=== PATIENT | female | born 1985 | race Caucasian/White ===

== ENCOUNTER → 2020-03-11 | Outpatient (CLI) | payer OTHER ==
--- NOTE | 2020-03-11 14:18 | US ---
EXAMINATION TYPE: US transvaginal DATE OF EXAM: 03/11/2020 COMPARISON: NONE CLINICAL HISTORY: N92.1 Excessive and frequent menstruation with. ovary and tube removed per patient history; ; right fallopian tube and ovary removed per patient. TECHNIQUE: Transvaginal (TV). Transvaginal sonographic images were medically necessary to better ass ess the following anatomy: endometrium and patient's bladder not filled Date of LMP: 02/20/2020 EXAM MEASUREMENTS: Uterus: 8.6 x 5.6 x 4.4 cm Endometrial Stripe: 0.8 cm Right Ovary: surgically removed Left Ovary: 8.6 x 5.6 x 4.4 cm 1. Uterus: Anteverted; couple of small Nabothian Cysts seen in cervix with largest = 0.4 x 0.3 x 0.3 cm 2. Endometrium: thickness is wnl for day 21 LMP 3. Right Ovary: surgically removed 4. Left Ovary: enlarged, but color flow is present, multiple follicles seen with largest simple foll icular cyst = 1.3 x 1.0 x 1.2cm and involuting follicle = 1.8 x 1.5 x 1.8cm. 5. Bilateral Adnexa: wnl 6. Posterior cul-de-sac: small amount of free fluid seen medial to left ovary/posterior cul de sac = 1.9 x 3.0 x 1.3cm. IMPRESSION: 1. Small cysts on the left ovary. 2. Small amount of free fluid within the cul-de-sac
== END | disposition home or self-care (01) ==
LOC: RADUSWWP 11:03
PROVIDERS: ATTEND Family Medicine
DX: N92.1 Excessive and frequent menstruation with irregular cycle (principal)
CPT/HCPCS: 76830

== ENCOUNTER → 2021-11-24 | Outpatient (CLI) | payer OTHER ==
--- NOTE | 2021-11-24 16:03 | US ---
EXAMINATION TYPE: US pelvis complete transvag DATE OF EXAM: 11/24/2021 COMPARISON: US CLINICAL HISTORY: N92.0 FREQUENT MENSTRUATION. Frequent menstruation. Patient states she had her righ t ovary and right fallopian tube removed. Hx tubal ligation, 1 miscarriage, D and C, . Patient h ad her IUD removed 11/10/2021. TECHNIQUE: Transvaginal (TV) and Transabdominal (TA) . Transabdominal sonographic images of the pel vis were acquired. Transvaginal sonographic images were medically necessary to better assess the fol lowing anatomy: Ovary and endometrium. Date of LMP: 11/15/2021 EXAM MEASUREMENTS: Uterus: 10.7 x 6.3 x 4.7 cm Endometrial Stripe: 0.51 cm Left Ovary: 3.9 x 3.0 x 1.7 cm 1. Uterus: Anteverted Measures upper limits versus slightly enlarged. Indistinct, hypoechoic area seen within myometrium: 1.4 x 1.4 x 1.2 cm. Subcentimeter anechoic areas seen in cervix. 2. Endometrium: Fluid seen within: 2.8 x 1.7 x 0.5 cm. Fluid seen within cervix: 1.7 x 0.2 x 0.2 cm. 3. Right Ovary: Patient states she had right ovary removed. See below. 4. Left Ovary: Largest anechoic area seen: 1.8 x 1.6 x 0.8 cm. 5. Bilateral Adnexa: * Solid, hypoechoic area seen in the right adnexa: 4.7 x 3.4 x 2.9 cm. Patient s tates she has had her right ovary and right fallopian tube removed. Complex area seen within area kayleigh cribed: 2.3 x 2.6 x 2.8 cm. Spectral, color and waveform doppler imaging shows arterial and venous flow within the area seen in the right adnexa. Flow used due to complex area seen. 6. Posterior cul-de-sac: Fluid seen IMPRESSION: 1. Uterine fibroids. 2. Fluid within the endometrial canal. 3. Solid-appearing lesion within the right adnexa which contains a complex cystic area discussed abov e. Patient is reported to be right oophorectomy. Additional workup of this finding is recommended. Co nsider CT examination.
== END | disposition home or self-care (01) ==
LOC: RADUSWWP 13:48
PROVIDERS: ATTEND Obstetrics & Gynecology
DX: N92.0 Excessive and frequent menstruation with regular cycle (principal); D25.9 Leiomyoma of uterus, unspecified
CPT/HCPCS: 76830; 76856

== ENCOUNTER → 2021-12-22 | Outpatient (CLI) | payer OTHER ==
--- NOTE | 2021-12-22 12:55 | CT ---
EXAMINATION TYPE: CT pelvis w con DATE OF EXAM: 12/22/2021 COMPARISON: Ultrasound 11/24/2021 HISTORY: 36-year-old female N94.89 Adnexal mass TECHNIQUE: Contiguous axial scanning of the pelvis following administration of 70 ml Isovue 300 IV co ntrast. Delayed images through the bladder and coronal/sagittal reconstructions performed. CT DLP: 441.9 mGycm Automated exposure control for dose reduction was used. FINDINGS: In the visualized lower abdomen and pelvis, no dilated small bowel or free fluid. No pelvic lymphadenopathy or abnormal fluid collection. Uterus anteverted measuring 10.1 x 5.9 x 4.7 cm. Both ovaries are visualized. Right ovary measures 3.9 x 3.0 x 2.4 cm for a volume of 14.0 mL. Within, there is a 2.4 cm cystic les ion with thin peripheral rim enhancement. This cystic lesion on the patient's 11/24/2021 ultrasound gui sured 2.8 cm which is relatively similar. Mild cul-de-sac free fluid probably physiologic. Bones: No osseous destructive process. IMPRESSION: 1. RIGHT OVARY WITH A VOLUME OF 14.0 ML. WITHIN THE RIGHT OVARY, THERE IS A 2.4 CM CYSTIC LESION WITH IN PERIPHERAL RIM ENHANCEMENT, RELATIVELY SIMILAR TO THE PATIENT'S 11/24/2021 ULTRASOUND. WE NOTE THE Leo LOPEZ'S PELVIC ULTRASOUND HISTORY STATING PRIOR RIGHT OOPHORECTOMY. RECOMMEND CLINICAL CORROBORATION . APPROPRIATE FOLLOW-UP RECOMMENDED, ESPECIALLY IF THERE IS CONCERN FOR RESIDUAL/RECURRENT CYSTIC EPI THELIAL NEOPLASM. 2. MILD CUL-DE-SAC FREE FLUID LIKELY PHYSIOLOGIC.
== END | disposition home or self-care (01) ==
LOC: RADCTMAIN 08:44
PROVIDERS: ATTEND Obstetrics & Gynecology
DX: N94.89 Other specified conditions associated with female genital organs and menstrual cycle (principal)
CPT/HCPCS: 72193; Q9967 ×2

== ENCOUNTER → 2022-01-19 | Outpatient (CLI) | payer OTHER | END | disposition home or self-care (01) | LOC: LABWHC1 16:14 | PROVIDERS: ATTEND Obstetrics & Gynecology | DX: R19.09 Other intra-abdominal and pelvic swelling, mass and lump (principal) | CPT/HCPCS: 36415; 86304 ==

== ENCOUNTER 2022-01-26 06:56 | Day surgery (SDC) | payer OTHER ==
[2022-01-25 13:05] VITALS: BMI 22.2
--- NOTE | 2022-01-25 19:05 | P.HPOB ---
History of Present Illness H&P Date: 01/25/22 Chief Complaint: Menorrhagia with irregular cycle This is 36 y.o. female, 4, para 3, who presents for dilatation and curettage with hysteroscopy and Novasure endometrial ablation. She recently had Mirena removed due to bleeding more often than not. Pelvic ultrasound showed uterus measuring 10.7 x 6.3 x 4.7 cm with small 1.4 cm fibroid, endometrium 0.51 cm with fluid within measuring 2.8 x 1.7 x 0.2 cm. Her right ovary had a cystic and solid appearance measuring up to 4.7 cm. Left ovary had 1.8 cm cyst. She had originally reported that her right ovary was removed, but upon reviewing her operative report, it appears she only had her right fallopian tube removed due to bleeding after a bilateral partial salpingectomy. OB Hx: . History of 3 vaginal deliveries. 1 miscarriage. Brake Tester Hx: No history of STDs. History of tubal ligation, 2013. Social Hx: Single. Lives with boyfriend. 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 Review of Systems Constitutional: Denies chills, Denies fever Eyes: denies blurred vision, denies pain Ears, nose, mouth and throat: Denies headache, Denies sore throat Cardiovascular: Denies chest pain, Denies shortness of breath Respiratory: Denies cough Gastrointestinal: Denies abdominal pain, Denies diarrhea, Denies nausea, Denies vomiting Genitourinary: Reports menorrhagia Menstruation: Reports menses 8 or > days, Reports menses variable Musculoskeletal: Denies myalgias Integumentary: Denies pruritus, Denies rash Neurological: Denies numbness, Denies weakness Psychiatric: Reports anxiety Endocrine: Denies fatigue, Denies weight change Hematologic/Lymphatic: Reports easy bruising 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 History of Any Multi-Drug Resistant Organisms: None Reported Past Surgical History: Breast Surgery, Tubal Ligation Additional Past Surgical History / Comment(s): Exploratory laproscopy, breast augmentation. Past Anesthesia/Blood Transfusion Reactions: Motion Sickness Additional Past Anesthesia/Blood Transfusion Reaction / Comment(s): Vertigo. Mom PONV. Past Psychological History: No Psychological Hx Reported Smoking Status: Never smoker Past Alcohol Use History: None Reported Past Drug Use History: None Reported - Past Family History Mother Family Medical History: Cancer (Breast) Medications and Allergies Home Medications Medication Instructions Recorded Confirmed Type No Known Home Medications 01/25/22 01/25/22 History Allergies Allergy/AdvReac Type Severity Reaction Status Date / Time ciprofloxacin [From Cipro] Allergy Swelling Verified 01/25/22 13:07 nitrofurantoin Allergy Rash/Hives Verified 01/25/22 13:07 [From Macrobid] Sulfa (Sulfonamide Allergy Swelling Verified 01/25/22 13:07 Antibiotics) Exam Osteopathic Statement: *. No significant issues noted on an osteopathic structural exam other than those noted in the History and Physical/Consult. Intake and Output 01/25/22 01/25/22 01/25/22 06:59 14:59 22:59 Other: Weight 49.895 kg HEENT: within normal limits Heart: regular rate and rhythm Lungs: clear to auscultation bilaterally Abdomen: soft, non-tender Pelvic: uterus mildly tender, anteverted, non-tender, no adnexal masses or tenderness Extremities: negative Angie's Assessment and Plan (1) Menorrhagia with irregular cycle Current Visit: No Status: Acute Code(s): N92.1 - EXCESSIVE AND FREQUENT MENSTRUATION WITH IRREGULAR CYCLE SNOMED Code(s): 033505094 Plan: Proceed with dilatation and curettage with hysteroscopy and Novasure endometrial ablation. I have discussed the risks, benefits, and alternative therapies for the above- mentioned procedure and for both sedation/anesthesia as well as necessary blood products administration, if indicated, as they pertain to this patient. The patient has indicated her understanding and acceptance of the risks and procedures discussed.
[~2022-01-26 06:56] MED LIST: DEXAMETHASONE SOD PHOSPHATE 4 MG/ML 1 ML VIAL IV ONE; LACTATED RINGERS 1,000 ML IV SCH; MIDAZOLAM 2 MG/2 ML VIAL IV PRN; ONDANSETRON 4 MG/2 ML VIAL IVP ONE; Pre Op ABX Message 1 EACH MISC MISCELLANE ONE; SCOPOLAMINE 1 MG/72 HR PATCH TRANSDERM ONE
[2022-01-26] MEDS ORDERED: HYDROmorphone 0.5 MG/0.5 ML SYRINGE IVP PRN (07:00)
[2022-01-26] MEDS ORDERED: PROPOFOL 10 MG/ML 20 ML VIAL IV ONE (07:26)
[2022-01-26] MEDS ORDERED: KETOROLAC 15 MG/ML 1 ML VIAL ONE (07:26)
[2022-01-26] MEDS ORDERED: fentaNYL (PF) 50 MCG/ML 2 ML AMP ONE (07:26)
[2022-01-26] MEDS ORDERED: LIDOCAINE 2% INJ 20 MG/ML (2 ML VIAL) ONE (07:26)
[2022-01-26] MEDS ORDERED: MIDAZOLAM 2 MG/2 ML VIAL ONE (07:26)
[2022-01-26 07:52] LABS: Basophils # (A) 0.1 k/uL (0-0.2); Basophils % (A) 1 %; Eosinophils # (A) 0.1 k/uL (0-0.7); Eosinophils % (A) 2 %; HCT 35.2 % (34.0-46.0); HGB 11.4 gm/dL (11.4-16.0); Lymphocytes # (A) 1.6 k/uL (1.0-4.8); Lymphocytes % (A) 28 %; MCH 26.1 pg (25.0-35.0); MCHC 32.5 g/dL (31.0-37.0); MCV 80.1 fL (80.0-100.0); Mean Platelet Volume 7.2; Monocytes # (A) 0.3 k/uL (0-1.0); Monocytes % (A) 5 %; Neutrophils # (A) 3.4 k/uL (1.3-7.7); Neutrophils % (A) 62 %; Platelet Count 238 k/uL (150-450); RBC 4.39 m/uL (3.80-5.40); RDW 13.7 % (11.5-15.5); WBC 5.5 k/uL (3.8-10.6)
--- NOTE | 2022-01-26 07:54 | P.OP ---
Date of Procedure: 01/26/22 Preoperative Diagnosis: Menorrhagia with irregular cycle Postoperative Diagnosis: Same Procedure(s) Performed: Dilation and curettage with hysteroscopy and NovaSure endometrial ablation Anesthesia: other (Mask general) Surgeon: Columba Glass Estimated Blood Loss (ml): 5 Pathology: other (Endometrial curettings) Condition: stable Disposition: same day Indications for Procedure: This is 36 y.o. female, 4, para 3, who presents for dilatation and curettage with hysteroscopy and Novasure endometrial ablation. She recently had Mirena removed due to bleeding more often than not. Pelvic ultrasound showed uterus measuring 10.7 x 6.3 x 4.7 cm with small 1.4 cm fibroid, endometrium 0.51 cm with fluid within measuring 2.8 x 1.7 x 0.2 cm. Her right ovary had a cystic and solid appearance measuring up to 4.7 cm. Left ovary had 1.8 cm cyst. She had originally reported that her right ovary was removed, but upon reviewing her operative report, it appears she only had her right fallopian tube removed due to bleeding after a bilateral partial salpingectomy. Operative Findings: Uterus is anteverted, no adnexal masses are palpated. Uterus is sounded to 8- 1/2 cm. Cervix is sounded to 3-1/2 cm. Upon hysteroscopy, a dyssynchronous endometrial pattern is noted. Both tubal ostia are visualized. A minimal to moderate amount of endometrial curettings are obtained. Description of Procedure: The patient is taken to the operating room. She is placed in the dorsal lithotomy position after general anesthesia was given. She is prepped and draped in the normal sterile fashion. Bladder is drained with a catheter and then removed. Pelvic exam is performed under anesthesia. Uterus is found to be anteverted with no adnexal masses. She is placed in slight Trendelenburg position. A right angle retractor is used to visualize the cervix. The anterior lip of the cervix is grasped with a single-tooth tenaculum. Cervix is sounded to 3.5 cm. Uterus is sounded to 8.5 cm. Cervix is gently dilated with Nunes dilators until a hysteroscope could be passed. Hysteroscopy is performed using normal saline. The above noted findings are noted. Next a polyp forceps is introduced. A minimal amount of tissue was obtained. Next medium-sized size sharp curette was placed. A minimal to moderate amount of endometrial curettings were obtained. Next NovaSure array was inserted into the endometrial cavity. Length was set at 5 cm and width was determined to be 4 cm. Next cavity assessment was completed and passed on the first try. Next NovaSure array was fired at 110 W for 69 seconds. Next the array was removed, inspected and then discarded. Next the hysteroscope was reinserted. Uniform charring was noted. Pictures were taken. Hysteroscope was removed. Single-tooth tenaculum was removed from the anterior lip of the cervix. Minimal bleeding was noted. All other instruments removed from the vagina. Sponge counts were correct. Patient is taken to recovery room in stable condition.
[2022-01-26 08:03] VITALS: TEMP 97.1
[2022-01-26] MEDS ORDERED: KETOROLAC 15 MG/ML 1 ML VIAL IVP ONE (08:23)
[2022-01-26] MEDS ORDERED: ACETAMINOPHEN TAB 500 MG TAB ONE (09:07)
[2022-01-26] MEDS ORDERED: ACETAMINOPHEN TAB 500 MG TAB PO ONE (09:07)
[2022-01-26 09:13] VITALS: BP 123/79; PULSE 52; RESP 15
[2022-01-26] MEDS ORDERED: ONDANSETRON 4 MG/2 ML VIAL IVP ONE ×2 (09:40)
[2022-01-26] MEDS ORDERED: ONDANSETRON 4 MG/2 ML VIAL ONE (09:40)
== END 2022-01-26 10:32 | disposition home or self-care (01) ==
LOC: OR 06:56
PROVIDERS: ATTEND Obstetrics & Gynecology
DX: N92.1 Excessive and frequent menstruation with irregular cycle (principal); N85.8 Other specified noninflammatory disorders of uterus; Z86.2 Personal history of diseases of the blood and blood-forming organs and certain disorders involving the immune mechanism; R42 Dizziness and giddiness; Z88.1 Allergy status to other antibiotic agents; Z88.2 Allergy status to sulfonamides; Z79.1 Long term (current) use of non-steroidal anti-inflammatories (NSAID); Z79.899 Other long term (current) drug therapy
CPT/HCPCS: 58563; 81025; 88305; 85025; J2250; J1100; J2405; J3010; J1885; J2704; J1170; J2001

== ENCOUNTER → 2022-02-16 | Outpatient (CLI) | payer OTHER | END | disposition home or self-care (01) | LOC: LABWHC1 09:35 | PROVIDERS: ATTEND Obstetrics & Gynecology | DX: N83.209 Unspecified ovarian cyst, unspecified side (principal) | CPT/HCPCS: 36415; 86304 ==

== ENCOUNTER → 2022-02-16 | Outpatient (CLI) | payer OTHER ==
--- NOTE | 2022-02-16 11:39 | US ---
EXAMINATION TYPE: US pelvis complete transvag DATE OF EXAM: 02/16/2022 COMPARISON: US dated 12/22/20[address] dated12/22/2021 CLINICAL HISTORY: N83.0 OVARIAN CYST. Ablation 01/28/2022. TECHNIQUE: . Transabdominal sonographic images of the pelvis were acquired. Transvaginal sonographi c images were medically necessary to better assess the following anatomy: right ovary. Date of LMP: 01/22/2022 EXAM MEASUREMENTS: Uterus: 9.3 x 4.5 x 6.8 cm Endometrial Stripe: 0.6 cm with fluid within. Right adnexal mass: 3.0 x 1.8 x 2.8 cm Left Ovary: 2.8 x 2.2 x 2.4 cm 1. Uterus: Anteverted heterogeneous echotexture. 2. Endometrium: Trace fluid in the endometrial canal. Endometrium measures 7 mm in thickness. 3. Right adnexa: Patient reports right ovarian right fallopian tube removal. There is an ovoid mass within the right adnexa where this is in similar location to prior complex area with no cystic compon ents are identified. Color Doppler flow is identified. Follicles demonstrated. 4. Left Ovary: wnl, color Doppler flow is identified. Follicles demonstrated. 5. Bilateral Adnexa: Described above. 6. Posterior cul-de-sac: no free fluid IMPRESSION: 1. Heterogenous uterus suspicious for uterine fibroids. 2. Fluid within the endometrial canal redemonstrated. 3. Solid-appearing lesion is redemonstrated within the right adnexa with cystic regions no longer vis ualized. Patient does report history of right oophorectomy. This again has appearance of an ovary. Co rrelation with patient history is recommended. Further workup is recommended.
== END | disposition home or self-care (01) ==
LOC: RADUSWWP 09:03
PROVIDERS: ATTEND Obstetrics & Gynecology
DX: N83.201 Unspecified ovarian cyst, right side (principal)
CPT/HCPCS: 76830; 76856

== ENCOUNTER → 2022-10-26 | Outpatient (CLI) | payer OTHER ==
--- NOTE | 2022-10-26 10:26 | MM ---
Reason for Exam: Clinical finding. Baseline mammogram. Indicated Problems: Other indicated problem of the left side for 2 Week(s). Patient History: Menarche at age 13. First Full-Term at age 18. 2012, Bilateral Implants. Mother had breast cancer under age 50. Risk Values: Charlee 5 year model risk: 0.5%. NCI Lifetime model risk: 18.3%. Prior Study Comparison: Patient's first Mammogram. Tissue Density: The breast tissue is heterogeneously dense. This may lower the sensitivity of mammography. Findings: Bilateral breast implants. Benign appearing axillary lymph nodes. Occasional benign-appearing round calcification bilaterally. No suspicious group of microcalcifications or concerning mass. Overall Assessment: Benign, BI-RAD 2 Management: Screening Mammogram of both breasts at age 41. Manage clinically patient's symptoms of bilateral pain.. Results were given to the patient verbally at the time of exam. Patient should continue monthly self-breast exams. A clinical breast exam by your physician is recommended on an annual basis. This exam should not preclude additional follow-up of suspicious palpable abnormalities. Note on Charlee scores and lifetime risk: 1. A Charlee score greater than 3% is considered moderate risk. If this is the case, consider specialist referral to assess eligibility for a risk reducing agent. 2. If overall lifetime risk for the development of breast cancer is 20% or higher, the patient may qualify for future screening with alternating mammogram and breast MRI. Electronically signed and approved by: Puneet Hilario M.D.
== END | disposition home or self-care (01) ==
LOC: RADMAMWWP 09:49
PROVIDERS: ATTEND Obstetrics & Gynecology
DX: N64.4 Mastodynia (principal); R59.0 Localized enlarged lymph nodes; R92.2 Inconclusive mammogram; Z80.3 Family history of malignant neoplasm of breast
CPT/HCPCS: 77062; 77066

== ENCOUNTER 2023-01-13 21:41 | Emergency (ER) | payer OTHER ==
[2023-01-13 21:46] VITALS: BP 132/85; PULSE 66; RESP 18; TEMP 98.9
[2023-01-13] MEDS ORDERED: DEXAMETHASONE SOD PHOSPHATE 10 MG/ML 1 ML VIAL IM STA (22:17)
--- NOTE | 2023-01-13 23:01 | ED ---
General Adult HPI - General Chief complaint: ENT Stated complaint: Right eye Swelling Time Seen by Provider: 01/13/23 21:50 Source: patient Mode of arrival: ambulatory Limitations: no limitations - History of Present Illness Initial comments: This is a 37-year-old female who presents emergency department for swelling in her right eye. The patient noted that she had itchiness to the right eye earlier today and noted that she felt swelling approximately 20 minutes prior to arrival. The patient noted that she had swelling around the eye and the white of the eye so she took 2 doses of Benadryl at home. The patient stated OCCURRED 20 minutes prior to arrival. The patient came to the emergency department for evaluation to make sure "I didn't lose my eye." The patient denied any ALLERGIC reactions in the past and denied any other acute symptoms at this time. The patient denied any blurry vision. - Related Data Previous Rx's Medication Instructions Recorded predniSONE [Deltasone] 40 mg PO DAILY 5 Days #10 tab 01/13/23 Allergies Allergy/AdvReac Type Severity Reaction Status Date / Time ciprofloxacin [From Cipro] Allergy Swelling Verified 01/13/23 21:46 nitrofurantoin Allergy Rash/Hives Verified 01/13/23 21:46 [From Macrobid] Sulfa (Sulfonamide Allergy Swelling Verified 01/13/23 21:46 Antibiotics) Review of Systems ROS Statement: Those systems with pertinent positive or pertinent negative responses have been documented in the HPI. ROS Other: All systems not noted in ROS Statement are negative. 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 History of Any Multi-Drug Resistant Organisms: None Reported Past Surgical History: Breast Surgery, Tubal Ligation Additional Past Surgical History / Comment(s): Exploratory laproscopy, breast augmentation. Past Anesthesia/Blood Transfusion Reactions: Motion Sickness Additional Past Anesthesia/Blood Transfusion Reaction / Comment(s): Vertigo. Mom PONV. Past Psychological History: No Psychological Hx Reported Smoking Status: Never smoker Past Alcohol Use History: None Reported Past Drug Use History: None Reported - Past Family History Mother Family Medical History: Cancer (Breast) General Exam Limitations: no limitations General appearance: alert, in no apparent distress Head exam: Present: atraumatic, normocephalic, normal inspection Eye exam: Present: normal appearance, PERRL, other (R scleral chemosis noted) Pupils: Present: normal accommodation ENT exam: Present: normal exam, normal oropharynx, mucous membranes moist Neck exam: Present: normal inspection, full ROM Respiratory exam: Present: normal lung sounds bilaterally Cardiovascular Exam: Present: regular rate, normal rhythm, normal heart sounds GI/Abdominal exam: Present: soft, normal bowel sounds Extremities exam: Present: normal inspection, full ROM Back exam: Present: normal inspection, full ROM Neurological exam: Present: alert, oriented X3, CN II-XII intact Psychiatric exam: Present: normal affect, normal mood Skin exam: Present: warm, dry Course Vital Signs 01/13/23 21:43 Temperature 98.9 F Pulse Rate 66 Respiratory 18 Rate Blood Pressure 132/85 O2 Sat by Pulse 97 Oximetry Medical Decision Making - Medical Decision Making Was pt. sent in by a medical professional or institution (, PA, PLUNGER SCOOP OPERATOR, urgent care, hospital, or custodial...) When possible be specific @ -No Did you speak to anyone other than the patient for history (EMS, parent, family, police, friend...)? What history was obtained from this source @ -No Did you review nursing and triage notes (agree or disagree)? Why? @ -I reviewed and agree with nursing and triage notes Were old charts reviewed (outside hosp., previous admission, EMS record, old EKG, old radiological studies, urgent care reports/EKG's, custodial records)? Report findings @ -No old charts were reviewed Differential Diagnosis (chest pain, altered mental status, abdominal pain women, abdominal pain men, vaginal bleeding, weakness, fever, dyspnea, syncope, headache, dizziness, GI bleed, back pain, seizure, CVA, palpatations, mental health)? @ -ALLERGIC conjunctivitis, chemosis, hemorrhagic chemosis EKG interpreted by me (3pts min.). @ -None X-rays interpreted by me (1pt min.). @ -None done CT interpreted by me (1pt min.). @ -None done U/S interpreted by me (1pt. min.). @ -None done What testing was considered but not performed or refused? (CT, X-rays, U/S, labs)? Why? @ -None What meds were considered but not given or refused? Why? @ -None Did you discuss the management of the patient with other professionals (professionals i.e. , PA, PLUNGER SCOOP OPERATOR, lab, RT, psych nurse, web content & social media manager, foam rubber curer, teacher, public health service officer, family preservation caseworker)? Give summary @ -No Was smoking cessation discussed for >3mins.? @ -No Was critical care preformed (if so, how long)? @ -No Were there social determinants of health that impacted care today? How? (Homelessness, low income, unemployed, alcoholism, drug addiction, transportation, low edu. Level, literacy, decrease access to med. care, long-term, rehab)? @ -No Was there de-escalation of care discussed even if they declined (Discuss DNR or withdrawal of care, Hospice)? DNR status @ -No What co-morbidities impacted this encounter? (DM, HTN, Smoking, COPD, CAD, Cancer, CVA, ARF, Chemo, Hep., AIDS, mental health diagnosis, sleep apnea, morbid obesity)? @ -None Was patient admitted / discharged? Hospital course, mention meds given and route, prescriptions, significant lab abnormalities, going to OR and other pertinent info. @ -The patient was seen and evaluated emergency department. Physical exam, the patient was resting in bed without any acute distress. Vital signs admission were stable. Due to the nature the patient's physical exam findings related to ecchymosis, the patient did receive IM Decadron as the patient had arty taken Benadryl at home prior to arrival. The patient initially had complaints of the right eyes swelling and noted some minor swelling to the left eye. On reevaluation, the patient stated that her symptoms were improving but stated that she had pain in the right eye therefore forcing staining was obtained and was negative for a corneal abrasion. The patient remained stable and was given a prescription for prednisone to be taken at home and told to continue to take Benadryl. The patient likely had ALLERGIC chemosis and was told to continue to monitor symptoms and report back to the emergency department if they became acutely worse. The patient was agreeable to this and was discharged home in stable condition. Undiagnosed new problem with uncertain prognosis? @ -No Drug Therapy requiring intensive monitoring for toxicity (Heparin, Nitro, Insulin, Cardizem)? @ -No Were any procedures done? @ -No Diagnosis/symptom? @ -ALLERGIC conjunctival chemosis. Acute, or Chronic, or Acute on Chronic? @ -Acute Uncomplicated (without systemic symptoms) or Complicated (systemic symptoms)? @ -Uncomplicated Side effects of treatment? @ -No Exacerbation, Progression, or Severe Exacerbation? @ -No Poses a threat to life or bodily function? How? (Chest pain, [place], [place], pneumonia, PE, COPD, DKA, ARF, appy, cholecystitis, CVA, Diverticulitis, Homicidal, Suicidal, threat to staff... and all critical care pts) @ -No Disposition Clinical Impression: Chemosis of conjunctiva of both eyes Disposition: HOME SELF-CARE Condition: Stable Instructions (If sedation given, give patient instructions): Conjunctivitis (ED) Prescriptions: predniSONE [Deltasone] 40 mg PO DAILY 5 Days #10 tab Is patient prescribed a controlled substance at d/c from ED?: No Referrals: Gino Sosa MD [Primary Care Provider] - 1-2 days Time of Disposition: 23:00
[2023-01-13] MEDS ORDERED: FLUORESCEIN STRIPS 1 MG STRIP RIGHT EYE ONE (23:15)
[2023-01-13] MEDS ORDERED: PROPARACAINE 0.5% OPHTH DROPS 15 ML BTL RIGHT EYE STA (23:16)
== END 2023-01-13 23:50 | disposition home or self-care (01) ==
LOC: EC 21:41
DX: H11.423 Conjunctival edema, bilateral (principal); Z88.1 Allergy status to other antibiotic agents; Z88.2 Allergy status to sulfonamides
CPT/HCPCS: 99283; 96372; J1100